=== PATIENT | male | born 1985 | race Caucasian/White ===

== ENCOUNTER 2023-11-19 13:20 | Emergency (ER) | payer SELFPAY ==
[2023-11-19 13:21] VITALS: BP 178/97; PULSE 68; RESP 16; TEMP 36.7; O2SAT 95; BMI 24.3
--- NOTE | 2023-11-19 13:51 | [facility].EDGENADL ---
Discharge Plan Disposition Patient Disposition: Home, Self-Care Prescriptions Prescriptions: New sulfamethoxazole-trimethoprim [Bactrim DS] 800-160 mg tablet 1 tab PO BID 7 Days Qty: 14 0RF cefadroxil 500 mg capsule 500 mg PO BID 7 Days Qty: 14 0RF Referrals Follow up/Referrals: Provider,Referral, [Primary Care Provider] - See instructions Activity Restrictions/Add. Instructions Additional Instructions/Restrictions: Call your family doctor to establish care for this visit to the emergency department and schedule follow-up within 48 hours to ensure improvement. If you have any worsening of your condition or any other concerning signs or symptoms, return to the emergency department or your primary care doctor for further evaluation. Bactrim and Keflex twice daily for 7 days. Clinical Impressions Clinical Impression: Cellulitis of finger of right hand Instructions Patient Instructions: DI for Skin Abscess Discharge ED Provider: Marvin Hinson General Adult HPI General Chief complaint: Skin/Abscess/Foreign Body Stated complaint: poss spider bite right finger Time Seen by Provider: 11/19/23 13:31 History of Present Illness HPI narrative: Please note that above description of symptoms, in this electronic medical record under categorization of recalled from ER triage doctor by RN are reflective of an initial nursing assessment, however, is not reflective of my full history and physical exam that was personally taken and clarified. Consequentially, this preceding description of symptoms, which may include the patient's categorized chief complaint in the EMR, do not reflect my personal clinical impression, and the ultimate description of history of present illness and patient stated complaints should be deferred to this section of the note. Unless stated otherwise or congruent with this section of the note, additional signs, symptoms, or incongruence should be interpreted as inaccurate with my clinical impression. Related Data Previous Rx's ?Medication ?Instructions ?Recorded cefadroxil 500 mg capsule 500 mg PO BID 7 days #14 caps 11/19/23 sulfamethoxazole 800 1 tab PO BID 7 days #14 tabs 11/19/23 mg-trimethoprim 160 mg tablet (Bactrim DS) Allergies Allergy/AdvReac Type Severity Reaction Status Date / Time No Known Allergies Allergy Verified 11/19/23 13:52 [facility] Disclaimer: The information contained in this section may have been updated after the patient was seen, as this information can be updated by other users. Social History Smoking Status: Unknown if ever smoked alcohol intake: never current occupational status: employed Travel in the last 8 weeks: None ROS Obtained: Yes All systems reviewed & no additional complaints except as documented Physical Exam General General appearance: alert Head Head exam: atraumatic and normocephalic Eye Eye exam: Present normal appearance, PERRL and EOMI Neck Neck exam: Present normal inspection, full ROM and trachea midline Respiratory Respiratory exam: Absent respiratory distress, wheezes, stridor, accessory muscle use or prolonged expiratory phase Cardiovascular Cardiovascular exam: Present other (Pulses equal symmetric in upper and lower extremities) Abdominal Exam Abdominal exam: Present soft; Absent distention, tenderness or pulsatile mass Extremities Exam Extremities exam: Present other (Puncture wound extending through soft tissues on middle phalanx of right pointer finger. Fusiform swelling. Not held in flexion, able to extend passively and actively without pain, no flexor tendon tenderness. Neurovascularly intact.); Absent edema Neurological Exam Neurological exam: Present alert, oriented X3 and CN II-XII intact; Absent motor sensory deficit Skin Skin exam: Present warm and dry; Absent diaphoresis or erythema Medical Decision Making Medical Records Medical records reviewed: Yes I reviewed the patient's medical records. Han Inquiry Pt receiving controlled substance: No Han was queried for this patient: No Medical Decision Narrative: 38-year-old male no relevant medical history presenting with right pointer finger injury. Patient states that he noticed it just this morning, 11/18. Struck his corn. Thinks that he may have injured it while doing so. Has puncture wound going through middle phalanx of right finger through soft tissues. Has been swelling. States that his not painful, no redness extending around the finger. He states that he was able to express laurel purulence today. History obtained to patient. On arrival, patient very well-appearing. He does have fusiform swollen right second digit, but no tenderness with range of motion, not held in flexion, able to flex and extend without issue, no flexor tendon sheath tenderness. There is a puncture wound through soft tissues laterally. Differential includes cellulitis, among others. Because patient well-appearing, no palpable foreign body, patient given Bactrim and Keflex and deemed appropriate for outpatient management with PCP. Patient is agreeable this plan. Because patient at baseline without signs or symptoms of clinical decompensation, deemed appropriate for discharge. Results were relayed to patient who voiced understanding and were agreeable to outpatient management and follow up. I discussed my clinical impression with patient and answered all questions. At this time, the evidence for any other entities in the differential is insufficient to warrant any further testing or ED observation. This was explained as well. Advisory was given that persistent or worsening symptoms require further evaluation. I confirmed the understanding of this discussion. [employer] disclaimer Much of this encounter note is an electronic heel sorter spoken language to printed text. Electronic heel sorter of the spoken language may permit errors. Although I have reviewed the note, some errors may still exist. Critical Care Critical Care Time Critical Care Time: No
[2023-11-19] MEDS: SULFA/TRIMETHOPRIM 1 TABLET 1 EACH PO (13:55)
[2023-11-19] MEDS: cephALEXin 500MG CAPSULE 1000 MG PO (13:55)
[2023-11-19 14:04] VITALS: BP 154/101; PULSE 81; RESP 16; TEMP 36.9; O2SAT 95
== END 2023-11-19 14:08 | disposition home or self-care (01) ==
PROVIDERS: Emergency Provider Emergency Medicine
DX: L03.113 Cellulitis of right upper limb (principal)
CPT/HCPCS: 99283